=== PATIENT | female | born 2000 | race Caucasian/White ===

== ENCOUNTER 2019-10-16 22:18 | Emergency (ER) | payer OTHER ==
[2019-10-17] MEDS ORDERED: KETOROLAC 30 MG/ML 1ML VIAL ONE (01:00)
[2019-10-17] MEDS ORDERED: ISOVUE-370 76% 100ML VIAL ONE (01:00)
[2019-10-17] MEDS ORDERED: METHOCARBAMOL 1,000 MG/10 ML VIAL (J2800) ONE (01:00)
[2019-10-17] MEDS ORDERED: LevoFLOXacin 750MG/150ML IV BAG (J1956 PER 250MG) ONE (01:00)
[2019-10-17] MEDS ORDERED: METHOCARBAMOL 1,000 MG/10 ML VIAL (J2800) As Ordered ONE (01:09)
[2019-10-17] MEDS ORDERED: KETOROLAC 30 MG/ML 1ML VIAL As Ordered ONE (01:09)
[2019-11-28 11:28] LABS: APPEARANCE, URINE HAZY (CLEAR); BACTERIA, URINE AUTO 1+ (NEGATIVE); BILIRUBIN, URINE AUTO NEGATIVE (NEGATIVE); BLOOD, URINE BLOOD 2+ (NEGATIVE); COLOR, URINE YELLOW (YELLOW); GLUCOSE, URINE (UA) AUTO NEGATIVE (NEGATIVE); KETONE, URINE AUTO NEGATIVE (NEGATIVE); LEUKOCYTE ESTERASE, URINE AUTO 3+ (NEGATIVE); MUCUS, URINE SMALL (NEGATIVE); NITRITE, URINE AUTO NEGATIVE (NEGATIVE); PROTEIN, URINE AUTO 2+ mg/dL (NEGATIVE); RBC, URINE AUTO 54 /HPF (0-3); SPECIFIC GRAVITY URINE AUTO 1.009 (1.002-1.035); SQUAMOUS EPITHELIAL CELL UR AU 6 /HPF (0-6); UROBILINOGEN, URINE AUTO 0.2 mg/dL (0.0-2.0); WBC, URINE AUTO 111 /HPF (0-3)
[2019-11-30 11:12] LABS: HEMATOCRIT 37.7 % (36.0-47.0); HEMOGLOBIN 12.7 g/dl (12.0-15.5); RED BLOOD COUNT 4.24 10^6/uL (4.00-5.40); WHITE BLOOD COUNT 9.7 10^3/uL (4.0-10.0)
[2019-11-30 11:13] LABS: MEAN CORPUSCULAR HGB CONC 33.7 g/dl (32.0-36.5); MEAN CORPUSCULAR VOLUME 88.9 fl (80.0-96.0); PLATELET COUNT, AUTOMATED 227 10^3/uL (150-450)
[2020-01-07 16:17] LABS: ALBUMIN 4.6 GM/DL (3.2-5.2); ALT/SGPT 20 U/L (12-78); BILIRUBIN,DIRECT 0.2 MG/DL (0.0-0.2); BILIRUBIN,TOTAL 0.5 MG/DL (0.2-1.0); BLOOD UREA NITROGEN 10 MG/DL (7-18); CALCIUM LEVEL 9.4 MG/DL (8.5-10.1); CARBON DIOXIDE LEVEL 31 MEQ/L (21-32); CHLORIDE LEVEL 104 MEQ/L (98-107); CREATININE FOR GFR 0.87 MG/DL (0.55-1.30); GLOMERULAR FILTRATION RATE > 60.0 (>60); GLUCOSE, FASTING 100 MG/DL (70-100); LIPASE 152 U/L (73-393); POTASSIUM SERUM 3.5 MEQ/L (3.5-5.1); SODIUM LEVEL 138 MEQ/L (136-145); TOTAL PROTEIN 7.8 GM/DL (6.4-8.2)
[2020-01-07 16:28] LABS: HCG, SERUM QUALITATIVE NEGATIVE (NEGATIVE)
== END 2019-10-17 04:00 | disposition home or self-care (01) ==
LOC: M ED 22:18
DX: N39.0 Urinary tract infection, site not specified (principal); Q63.8 Other specified congenital malformations of kidney; Z88.0 Allergy status to penicillin; Z88.1 Allergy status to other antibiotic agents; Z88.2 Allergy status to sulfonamides
CPT/HCPCS: 74177; 80048; 80076; 81001; 83690; 84703; 85027; 87088; 87186; 96374; 96375; 99284; J1885; J1956; J2800; Q9967